=== PATIENT | female | born 1950 | race Caucasian/White ===

== ENCOUNTER 2017-07-17 12:19 | Emergency (ER) | payer MEDICARE ==
[2017-07-17 12:59] VITALS: BP 152/75
--- NOTE | 2017-07-17 14:17 | RAD ---
HISTORY: Shortness of breath, evaluate for pneumonia COMPARISONS: None VIEWS: 4: Frontal dual-energy and lateral views of the chest. FINDINGS: CARDIOMEDIASTINAL SILHOUETTE: The cardiomediastinal silhouette is normal. KRISTIN: The kristin are normal. PLEURA: The costophrenic angles are sharp. No pleural abnormalities are noted. LUNG PARENCHYMA: The lungs are clear. ABDOMEN: The upper abdomen is clear. There is no subphrenic gas. BONES AND SOFT TISSUES: No bone or soft tissue abnormalities are noted. OTHER: None. IMPRESSION: NO ACTIVE CARDIOPULMONARY DISEASE.
--- NOTE | 2017-07-17 14:24 | UC ---
Respiratory Complaint HPI - HPI Summary HPI Summary: Cough and congestion/bronchitis in May. She was placed on z pack and steroids and she got completely better. Starting 1 week ago she started to have similar symptoms. She started another z pack but not prednisone. She is not feeling much better. No known fevers. She is bringing up green and yellow sputum. - History of Current Complaint Chief Complaint: UCGeneralIllness Stated Complaint: SOB Time Seen by Provider: 07/17/17 13:44 Hx Obtained From: Patient, Family/Welt Wheeler Onset/Duration: Gradual Onset, Lasting Days Timing: Constant Severity Initially: Moderate Severity Currently: Moderate Character: Cough: Productive Aggravating Factors: Deep Breaths, Recumbent Position Alleviating Factors: Bronchodilator, Upright Position, Spontaneous Resolution Associated Signs And Symptoms: Positive: URI, Nasal Congestion. Negative: Calf Pain, Calf Swelling - Allergies/Home Medications Allergies/Adverse Reactions: Allergies Allergy/AdvReac Type Severity Reaction Status Date / Time Aspirin Allergy ANAPHYLAXIS Verified 07/17/17 12:59 Penicillins Allergy EYES SWELL Verified 07/17/17 12:59 / HIVES ALL MELONS, APRICOT, Allergy THROAT Uncoded 07/17/17 12:59 POMEGRANATE ITCH, TONGUE SWELL ENVIRONMENTAL/SEASONAL Allergy SNEEZE, Uncoded 07/17/17 12:59 ITCHY WATERY EYES Home Medications: Home Medications Azithromycin TAB* [Zithromax TAB (Z-SHARI) 250 mg #6 tabs] 250 mg PO DAILY [History Confirmed 07/17/17] Cholecalciferol [Vitamin D] 1,000 unit PO DAILY 07/17/17 [History Confirmed ] Losartan Potassium & Hydrochlo [Losartan Potassium/Hydroc 50-12.5 mg] 1 tab PO DAILY 07/17/17 [History Confirmed 07/17/17] Rosuvastatin (NF) [Crestor (NF)] 5 mg PO 1700 07/17/17 [History Confirmed ] proPAFENone TAB* [Rythmol*] 150 mg PO Q8H 07/17/17 [History Confirmed 07/17/17] PMH/Surg Hx/FS Hx/Imm Hx Previously Healthy: No - asthma. - Surgical History Surgical History: Yes Surgery Procedure, Year, and Place: PARTIAL R THYROID REMOVED, LUMPECTOMY ON NECK REMOVED, [facility], [place]. [address], [facility] HIATAL HERNIA, [facility]. 2010 TWISTED BOWEL SURGERY, [facility]. left hip replacement 08/2016 - Family History Known Family History: Positive: Other - no related family history. - Social History Alcohol Use: Occasionally Substance Use Type: None Smoking Status (MU): Never Smoked Tobacco - Immunization History Most Recent Influenza Vaccination: [id number] Review of Systems Respiratory: Cough All Other Systems Reviewed And Are Negative: Yes Physical Exam Triage Information Reviewed: Yes Appearance: Well-Appearing, No Pain Distress, Well-Nourished Vital Signs: Initial Vital Signs Temp 97.3 F 07/17/17 12:53 Pulse 74 07/17/17 12:53 Resp 17 07/17/17 12:53 BP 152/75 07/17/17 12:53 Pulse Ox 98 07/17/17 12:53 Vital Signs Reviewed: Yes Eye Exam: Normal Eyes: Positive: Conjunctiva Clear ENT: Positive: Normal ENT inspection, Pharynx normal, TMs normal, Uvula midline. Negative: Pharyngeal erythema, Nasal congestion, TM bulging Neck: Positive: Supple, Nontender, No Lymphadenopathy Respiratory: Positive: Normal breath sounds - Good air movement throughout., No respiratory distress, No accessory muscle use, Wheezing. Negative: Respiratory distress, Decreased breath sounds, Accessory muscle use, Crackles, Rhonchi, Stridor Cardiovascular: Positive: RRR, No Murmur, Pulses Normal, Brisk Capillary Refill Abdomen Description: Positive: Nontender. Negative: Distended, Guarding Musculoskeletal: Positive: ROM Intact, No Edema Neurological: Positive: Alert, Muscle Tone Normal. Negative: Fatigued Psychological: Positive: Age Appropriate Behavior Skin: Negative: rashes UC Diagnostic Evaluation - Laboratory O2 Sat by Pulse Oximetry: 98 Respiratory Course/Dx - Differential Dx/Diagnosis Provider Diagnoses: acute bronchitis with bronchorestriction. acute asthma exacerbation. Discharge - Discharge Plan Condition: Good Disposition: HOME Prescriptions: predniSONE TAB* [Deltasone TAB*] 40 mg PO DAILY #15 tab Patient Education Materials: Bronchospasm (ED), Asthma (ED) Referrals: David Jimenez MD [Primary Care Provider] - 2 Days
== END 2017-07-17 14:34 | disposition home or self-care (01) ==
LOC: UCCORT 12:19
DX: J20.9 Acute bronchitis, unspecified (principal); J45.901 Unspecified asthma with (acute) exacerbation
CPT/HCPCS: 71046; 99212; G0463

== ENCOUNTER 2017-09-14 08:37 | Day surgery (SDC) | payer MEDICARE ==
[~2017-09-14 08:37] MED LIST: Acetaminophen TAB* 325 MG PO PRN; Buffered Lidocaine 0.9% SYRIN* 5 ML/SYR SYRINGE INTRADERM ONE
[2017-09-14] MEDS ORDERED: Midazolam* 1 MG/ML 2 ML VIAL (2 MG) ONE ×2 (10:20→10:38)
[2017-09-14] MEDS ORDERED: Lidocaine 2% EPI 1:200000 MPF* 20 ML VIAL ONE (10:38)
[2017-09-14] MEDS ORDERED: Phenylephrine 2.5% OPTH.SOL* 2 ML BTL ONE (10:38)
[2017-09-14] MEDS ORDERED: Cyclopentolate 1% OPTH.SOL* 2 ML BTL ONE (10:38)
[2017-09-14] MEDS ORDERED: Proparacaine 0.5% OPHTH.SOL* 15 ML BTL ONE (10:38)
[2017-09-14] MEDS ORDERED: Lidocaine 1% MPF* 2 ML VIAL ONE (10:38)
[2017-09-14] MEDS ORDERED: Povidone Iodine 5% OPTH* 30 ML BTL ONE (10:38)
[2017-09-14] MEDS ORDERED: acetaZOLAMIDE TAB* 250 MG ONE (10:38)
[2017-09-14] MEDS ORDERED: Neomycin/Polymy/Dex OPTH.SUSP* MAXITROL 0.1% 5 ML ONE (10:38)
[2017-09-14 11:03] VITALS: BP 140/76
--- NOTE | 2017-09-14 11:40 | OP ---
DATE OF OPERATION: 09/14/2017 - [facility] DATE OF : 1950. SURGEON: Nigel Acuna M.D. PREOPERATIVE DIAGNOSIS: Cataract right eye. POSTOPERATIVE DIAGNOSIS: Cataract right eye. OPERATIVE PROCEDURE: Extracapsular cataract extraction with intraocular lens implant right eye. DESCRIPTION OF PROCEDURE: The patient was brought to the operating room after being given 1/2% Alcaine with epinephrine drops in the preoperative area. The eye was prepped and draped in the usual sterile fashion. Sterile drape and eyelid speculum were placed. Again, topical 1/2% Alcaine with epinephrine was given. A paracentesis incision was made at the 9 o'clock position with the No.75 blade. Clear cornea incision 2.2 x 2.2-mm was created at the 12 o'clock position starting at the anterior limbus using the 2.2-mm keratome. The anterior chamber was irrigated with 0.4 mL of 1% non-preservative intracameral lidocaine and filled with DisCoVisc. A capsulorrhexis was completed using the cystotome and the Utrata forceps. Hydrodissection was performed with balanced salt solution. The lens nucleus was removed with the Phacoemulsification handpiece without incident. Cortex was removed with the irrigation-aspiration handpiece. The capsular bag was re-inflated using DisCoVisc and an SN60WF 20.5 Implant was inserted with the shooter. The irrigation-aspiration handpiece was used to remove all residual DisCoVisc. The eye was refilled with balanced salt solution and the wound checked and found to be watertight. Topical Maxitrol drops were given. [id number]/[facility] #: [id number] [facility]
== END 2017-09-14 11:14 | disposition home or self-care (01) ==
LOC: OREAST 08:37
PROVIDERS: ATTEND Specialist
DX: H26.9 Unspecified cataract (principal); Z79.899 Other long term (current) drug therapy; J45.909 Unspecified asthma, uncomplicated; I48.91 Unspecified atrial fibrillation; Z79.01 Long term (current) use of anticoagulants; K21.9 Gastro-esophageal reflux disease without esophagitis; Z88.0 Allergy status to penicillin; Z88.6 Allergy status to analgesic agent
CPT/HCPCS: A9270-GY; J2250; V2632

== ENCOUNTER 2017-09-21 07:09 | Day surgery (SDC) | payer MEDICARE ==
[2017-09-21] MEDS ORDERED: Midazolam* 1 MG/ML 2 ML VIAL (2 MG) ONE ×2 (08:05→08:31)
[2017-09-21] MEDS ORDERED: fentaNYL* 50 MCG/ML 2 ML VIAL (100 MCG VIAL) ONE (08:06)
[2017-09-21 09:07] VITALS: BP 152/82
[2017-09-21] MEDS ORDERED: Phenylephrine 2.5% OPTH.SOL* 2 ML BTL ONE (11:50)
[2017-09-21] MEDS ORDERED: Proparacaine 0.5% OPHTH.SOL* 15 ML BTL ONE (11:50)
[2017-09-21] MEDS ORDERED: Neomycin/Polymy/Dex OPTH.SUSP* MAXITROL 0.1% 5 ML ONE (11:50)
[2017-09-21] MEDS ORDERED: Lidocaine 1% MPF* 2 ML VIAL ONE (11:50)
[2017-09-21] MEDS ORDERED: Povidone Iodine 5% OPTH* 30 ML BTL ONE (11:50)
[2017-09-21] MEDS ORDERED: Lidocaine 2% EPI 1:200000 MPF* 20 ML VIAL ONE (11:50)
[2017-09-21] MEDS ORDERED: Cyclopentolate 1% OPTH.SOL* 2 ML BTL ONE (11:50)
[2017-09-21] MEDS ORDERED: acetaZOLAMIDE TAB* 250 MG ONE (11:50)
--- NOTE | 2017-09-21 13:54 | OP ---
DATE OF OPERATION: 09/21/17 - LOCATED WITHIN [facility] DATE OF : [birth year] SURGEON: Nigel Acuna M.D. PREOPERATIVE DIAGNOSIS: Cataract left eye. POSTOPERATIVE DIAGNOSIS: Cataract left eye. OPERATIVE PROCEDURE: Extracapsular cataract extraction with intraocular lens implant and CTR, left eye. DESCRIPTION OF PROCEDURE: The patient was brought to the operating room after being given 1/2% Alcaine with epinephrine drops in the preoperative area. The eye was prepped and draped in the usual sterile fashion. Sterile drape and eyelid speculum were placed. Again, topical 1/2% Alcaine with epinephrine was given. A paracentesis incision was made at the 3 o'clock position with the No.75 blade. Clear cornea incision 2.2 x 2.2-mm was created at the 6 o'clock position starting at the anterior limbus using the 2.2-mm keratome. The anterior chamber was irrigated with 0.4 mL of 1% non-preservative intracameral lidocaine and filled with DisCoVisc. A capsulorrhexis was completed using the cystotome and the Utrata forceps. Hydrodissection was performed with balanced salt solution. The lens nucleus was removed with the Phacoemulsification handpiece without incident. Cortex was removed with the irrigation-aspiration handpiece. The capsular bag was re-inflated using DisCoVisc and an SN60WF 19.5 implant was inserted with the shooter followed by a CTR 11 inserted with a shooter. The irrigation-aspiration handpiece was used to remove all residual DisCoVisc. The eye was refilled with balanced salt solution and the wound checked and found to be watertight. Topical Maxitrol drops were given. 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 [id number]/[facility] #: [id number] F F [facility]OM[facility]ON HOSPITALJelly
== END 2017-09-21 09:14 | disposition home or self-care (01) ==
LOC: OREAST 07:09
PROVIDERS: ATTEND Specialist
DX: H25.12 Age-related nuclear cataract, left eye (principal); H40.1424 Capsular glaucoma with pseudoexfoliation of lens, left eye, indeterminate stage; J45.902 Unspecified asthma with status asthmaticus; M54.5 Low back pain; I48.91 Unspecified atrial fibrillation; Z79.01 Long term (current) use of anticoagulants; K21.9 Gastro-esophageal reflux disease without esophagitis
CPT/HCPCS: A9270-GY; J2250; J3010; V2632